=== PATIENT | female | born 1970 | race Hispanic/Latino ===

== ENCOUNTER 2017-09-30 16:45 | Emergency (ER) | payer OTHER ==
[~2017-09-30] VITALS: Ht 162.6 cm; Wt 117.0 kg
== END 2017-09-30 19:30 | disposition home or self-care (01) ==
LOC: FSED 16:45
DX: R80.9 Proteinuria, unspecified (principal); M25.552 Pain in left hip; M54.5 Low back pain; I10 Essential (primary) hypertension; E11.9 Type 2 diabetes mellitus without complications; F32.9 Major depressive disorder, single episode, unspecified
CPT/HCPCS: 81003; 81025; 99283